=== PATIENT | female | born 1990 | race Hispanic/Latino ===

== ENCOUNTER 2017-04-07 16:22 | Outpatient (CLI) | payer MEDICAID ==
[2017-04-07 17:01] VITALS: BP 129/65
[2017-04-07] MEDS ORDERED: VISTARIL PO ONE (17:29)
== END 2017-04-07 17:55 | disposition home or self-care (01) ==
LOC: TRG 16:22 → LD 16:23 → TRG 17:55
PROVIDERS: ATTEND Obstetrics & Gynecology
DX: O47.1 False labor at or after 37 completed weeks of gestation (principal); Z3A.37 37 weeks gestation of pregnancy
CPT/HCPCS: 59025; Q0177

== ENCOUNTER 2017-04-23 08:57 | Inpatient (IN) | payer MEDICAID ==
[2017-04-23] MEDS ORDERED: LACTATED RINGERS 1,000 ML ONE (09:33)
[2017-04-23] MEDS ORDERED: BRETHINE SUB-Q PRN (10:44)
[2017-04-23] MEDS ORDERED: STADOL IV PRN (10:44)
[2017-04-23] MEDS ORDERED: POLYCILLIN/NS 2 GM/100 ML 2 GM/100 ML BAG IV ONE (10:44)
[2017-04-23] MEDS ORDERED: MINERAL OIL PO PRN (10:44)
[2017-04-23] MEDS ORDERED: SUBLIMAZE IV PRN (10:44)
[2017-04-23] MEDS ORDERED: XYLOCAINE 2% INFILTRATI ONE (10:44)
[2017-04-23] MEDS ORDERED: BRETHINE IVP PRN (10:44)
[2017-04-23] MEDS ORDERED: ePHEDrine SULFATE IV PRN ×2 (10:44→15:39)
--- NOTE | 2017-04-23 10:49 | History and Physical Report ---
History of Present Illness Date of examination: 04/23/17 Date of admission: 04/23/17 08:57 Chief complaint: IOl for suspected macrosomic @ 40wks, . History of present illness: EDC Calculations by LMP: 04/23/2017 Past History : 4 Term Births: 3 Premature Births: 0 Living Children: 3 Para: 3 Mult. Births: 0 Prev : 0 Aborta: 0 Elect. Ab: 0 Spont. Ab: 0 # 1 Delivery date: 03/16/2009 Weeks Gestation: 41+3 Delivery type: Vaginal Anesthesia type: epidural Delivery location: [facility] Infant Sex: female weight: 9.19 Name: Alecia Comments: postterm # 2 Delivery date: 07/31/2007 Weeks Gestation: 41+3 Delivery type: Delivery location: [facility] Infant Sex: Female weight: 7-10 Comments: Inductio # 3 Delivery date: 03/03/2012 Weeks Gestation: 40 Delivery type: Vaginal Anesthesia type: epidural Delivery location: [facility] Sex: female weight: 9.19 Name: Alaina Past Medical History: Reviewed history from 07/04/2011 and no changes required: Asthma as a child Past Surgical History: Reviewed history from 08/18/2014 and no changes required: Tonsillectomy Breast Augmentation: 2013 Past Medical History Abnormal PAP: negative SVETLANA Exposure: negative Infertility: negative Uterine Anomaly: negative Uterine Surgery (not C/S): negative Other Gynecologic Problems: negative Social Hx: implementation advisor Patient is Infection History Hx of STD: none HIV Risk Eval: no Personal hx. of genital herpes: no Genetic History Congenital Heart Defect: Mom: no Dad: no Yifan Disease: Mom: no Dad: no Thalassemia Mom: no Dad: no Neural Tube Defect Mom: no Dad: no Down's Syndrome Mom: no Dad: no Ha-Sachs Mom: no Dad: no Sickle Cell Disease/Trait Mom: no Dad: no Hemophilia Mom: no Dad: no Muscular Dystrophy Mom: no Dad: no Cystic Fibrosis Mom: no Dad: no [place] Chorea Mom: no Dad: no Mental Retardation Mom: no Dad: no Fragile X Mom: no Dad: no Other Genetic/Chromosomal Disorder Mom: no Dad: no Child w/other defect Mom: no Dad: no Active Medications: PLUS 27-1 MG TABS ( VIT-FE FUMARATE-FA) 1 po DICLEGIS 10-10 MG TBEC (DOXYLAMINE-PYRIDOXINE) 2 tabs po qhs Current Allergies (reviewed today): * SULFA (Critical) Past History Past Medical History: no pertinent history - Obstetrical History Expected Date of Delivery: 04/23/17 Actual Gestation: 40 Week(s) 0 Day(s) : 4 Para: 3 Hx # Term Pregnancies: 3 Number of Pregnancies: 0 Spontaneous Abortions: 0 Induced : 0 Number of Living Children: 3 Medications and Allergies Allergies Allergy/AdvReac Type Severity Reaction Status Date / Time No Known Allergies Allergy Unverified 04/07/17 17:04 Home Medications Medication Instructions Recorded Confirmed Last Taken Type Vit W-Ca,Fe,FA(<1 mg) 1 tab PO DAILY 04/07/17 04/07/17 04/06/17 09:00 History [ Vitamins] 1 Active Meds: Active Medications Butorphanol Tartrate (Stadol) 2 mg IV Q2H PRN PRN Reason: Pain , Severe (7-10) Ephedrine Sulfate (Ephedrine Sulfate) 10 mg IV Q2M PRN PRN Reason: Hypotension Stop: 04/23/17 10:49 Fentanyl (Sublimaze) 100 mcg IV Q2H PRN PRN Reason: Labor Pain Ampicillin Sodium (Polycillin/Ns 2 Gm/100 Ml) 2 gm in 100 mls @ 100 mls/hr IV ONCE ONE PRN Reason: Protocol Stop: 04/23/17 11:43 Ampicillin Sodium (Polycillin/Ns 1 Gm/50 Ml) 1 gm in 50 mls @ 100 mls/hr IV Q4HR CHANDLER PRN Reason: Protocol Lactated Ringer's (Lactated Ringers) 1,000 mls @ 125 mls/hr IV DIRECT CHANDLER Oxytocin/Sodium Chloride (Pitocin/Ns 20 Unit/1000ml Drip) 20 units in 1,000 mls @ 125 mls/hr IV DIRECT CHANDLER Oxytocin/Sodium Chloride (Pitocin/Ns 30 Unit/500ml) 30 units in 500 mls @ 4 mls /hr IV TITR CHANDLER PRN Reason: Protocol Lidocaine (Xylocaine 2%) 20 ml INFILTRATI ONCE ONE Stop: 04/23/17 10:45 Mineral Oil (Mineral Oil) 30 ml PO QHS PRN PRN Reason: Constipation Terbutaline Sulfate (Brethine) 0.25 mg SUB-Q ONCE PRN PRN Reason: Hyperstimulation/Hypertonicity Stop: 04/23/17 10:45 Terbutaline Sulfate (Brethine) 0.25 mg IVP ONCE PRN PRN Reason: Hyperstimulation/Hypertonicity Stop: 04/23/17 10:45 Review of Systems All systems: negative - Vital Signs Vital signs: Vital Signs Pulse BP 83 131/79 04/23/17 09:21 04/23/17 09:21 Temp Pulse Resp BP Pulse Ox 98.1 F 86 13 131/79 100 04/23/17 09:50 04/23/17 10:00 04/23/17 09:50 04/23/17 09:21 04/23/17 10:00 - Physical Exam Breasts: Positive: normal Cardiovascular: Regular rate Lungs: Positive: Clear to auscultation, Normal air movement Abdomen: Positive: normal appearance, soft, normal bowel sounds Genitourinary (Female): Positive: normal external genitalia, normal perenium Vagina: Positive: normal moisture Uterus: Positive: normal size, normal contour Anus/Rectum: Positive: normal perianal skin Extremities: Positive: normal Deep Tendon Reflex Grade: Normal +2 - Obstetrical FHR: auscultation normal, category 1 Uterine Contraction Monitor Mode: External Cervical Dilatation: 1.5 Cervical Effacement Percentage: 30 station: -3 Uterine Contraction Pattern: Irregular Uterine Tone Measurement Phase: Contraction Uterine Contraction Intensity: Mild Results Result Diagrams: 04/23/17 10:45 All other labs normal. Assessment and Plan Patient admitted for IOL @ 40wks, GBS +, suspected macrosomia. orders in emr, anticipate . - Patient Problems (1) Positive GBS test Current Visit: Yes Status: Acute (2) Macrosomia Current Visit: Yes Status: Acute (3) Elective induction of labor planned Current Visit: Yes Status: Acute (4) 40 weeks gestation of Current Visit: Yes Status: Acute
[2017-04-23] MEDS ORDERED: PITOCin/NS 20 UNIT/1000ML DRIP 20 UNITS/1,000 ML BAG IV SCH ×2 (11:00→21:04)
[2017-04-23] MEDS ORDERED: PITOCin/NS 30 UNIT/500ML 30 UNITS/500 ML BAG IV SCH (11:00)
[2017-04-23] MEDS ORDERED: LACTATED RINGERS 1,000 ML IV SCH (11:00)
[2017-04-23 11:44] LABS: Hematocrit 35.4 % (30.3-42.9); Hemoglobin 12.1 gm/dl (10.1-14.3); Mean Corpuscular HGB Conc 34 % (30-34); Mean Corpuscular Hemoglobin 32 pg (28-32); Mean Corpuscular Volume 94 fl (79-97); Platelet Count 267 K/mm3 (140-440); Red Blood Count 3.76 M/mm3 (3.65-5.03); White Blood Count 10.1 K/mm3 (4.5-11.0)
[2017-04-23] MEDS ORDERED: POLYCILLIN/NS 1 GM/50 ML 1 GM/50 ML BAG IV SCH (14:45)
--- NOTE | 2017-04-23 15:38 | Anesthesia Consultation ---
Anesthesia Consult and Med Hx Date of service: 04/23/17 - Airway Anesthetic Teeth Evaluation: Good ROM Head & Neck: Adequate Mental/Hyoid Distance: Adequate Mallampati Class: Class II Intubation Access Assessment: Probably Good - Pulmonary Exam CTA: Yes - Cardiac Exam Cardiac Exam: RRR - Pre-Operative Health Status ASA Pre-Surgery Classification: ASA2 Proposed Anesthetic Plan: Epidural, Spinal - Pulmonary Hx Asthma: No COPD: No Hx Pneumonia: No - Cardiovascular System Hx Hypertension: No - Central Nervous System Hx Seizures: No Hx Psychiatric Problems: No - Endocrine Hx Renal Disease: No Hx End Stage Renal Disease: No Hx Hypothyroidism: No Hx Hyperthyroidism: No - Hematic Hx Anemia: No Hx Sickle Cell Disease: No - Other Systems Hx Alcohol Use: No - Additional Comments Anesthesia Medical History Comments: IUP in Labor @ 40 weeks. Plt 267. H/H 12.1/35.4
[2017-04-23] MEDS ORDERED: NARCAN 2 MG/2 ML IV PRN (15:39)
[2017-04-23] MEDS ORDERED: XYLOCAINE MPF 2% ONE (15:49)
[2017-04-23] MEDS ORDERED: fentaNYL-BUPIV 2 MCG/ML-0.125% 200 MCG/100 ML BAG EPIDURAL SCH (16:00)
--- NOTE | 2017-04-23 17:37 | Procedure Note ---
OB Delivery Note - Delivery Date of Delivery: 04/23/17 ( Male) Stock Digger: IVANIA NEAL Estimated blood loss: 300cc - Vaginal Delivery presentation: vertex Delivery position: OA Intrapartum events: none Delivery induction: oxytocin Delivery augmentation: rupture of membranes Delivery monitor: external FHT, external uterine Route of delivery: Delivery placenta: spontaneous Delivery cord: 3 umbilical vessels Episiotomy: none Delivery laceration: none Anesthesia: epidural Delivery comments: Male del MAHIN over intact perineum. Placed skin to skin on mother's abd, 3 vessel cord clamped and cut. Cord blood collected. Placenta del intact and complete. Pit IM (IV pulled out during pushing). EBL 300, Apgars 8/9, 's weight 9#4oz. no lacerations. mother and infant remain LDR stable. - Infant A at 1 minute: 8 at 5 minutes: 9 Gender: Male (9#4)
[2017-04-23] MEDS ORDERED: NORCO 5/325 PO PRN (21:04)
[2017-04-23] MEDS ORDERED: TUCKS PAD TP PRN (21:04)
[2017-04-23] MEDS ORDERED: DERMOPLAST TP PRN (21:04)
[2017-04-23] MEDS ORDERED: ZOFRAN IV PRN (21:04)
[2017-04-23] MEDS ORDERED: SODIUM CHLORIDE FLUSH SYRINGE 10 ML IV SCH (21:04)
[2017-04-23] MEDS ORDERED: DULCOLAX PR PRN (21:04)
[2017-04-23] MEDS ORDERED: LANSINOH TP PRN (21:04)
[2017-04-23] MEDS ORDERED: MILK OF MAGNESIA PO PRN (21:04)
[2017-04-23] MEDS ORDERED: PHENERGAN PO PRN (21:04)
[2017-04-23] MEDS ORDERED: BENADRYL PO PRN (21:04)
[2017-04-23] MEDS ORDERED: TYLENOL PO PRN (21:04)
[2017-04-23] MEDS: MOTRIN PO SCH (21:19)
[2017-04-24 04:59] LABS: Hematocrit 32.6 % (30.3-42.9); Hemoglobin 10.9 gm/dl (10.1-14.3)
[2017-04-24] MEDS: MOTRIN PO SCH ×3 (05:43→14:49)
[2017-04-24] MEDS ORDERED: BOOSTRIX IM ONE (06:00)
--- NOTE | 2017-04-24 08:04 | Progress Note ---
Assessment and Plan Patient doing well w/o complaints. Lochia scant, H&H stable 10.9/32.6, VSSAF. Patient desires d/c home this afternoon. plan for routine f/u 4 weeks for visit. - Patient Problems (1) Positive GBS test Current Visit: Yes Status: Acute (2) Macrosomia Current Visit: No Status: Resolved (3) Elective induction of labor planned Current Visit: No Status: Resolved (4) 40 weeks gestation of Current Visit: No Status: Resolved (5) (normal spontaneous vaginal delivery) Current Visit: Yes Status: Acute Subjective - Subjective Date of service: 04/24/17 Principal diagnosis: day #1 s/p Interval history: EDC Calculations by LMP: 04/23/2017 Past History : 4 Term Births: 3 Premature Births: 0 Living Children: 3 Para: 3 Mult. Births: 0 Prev : 0 Aborta: 0 Elect. Ab: 0 Spont. Ab: 0 # 1 Delivery date: 03/16/2009 Weeks Gestation: 41+3 Delivery type: Vaginal Anesthesia type: epidural Delivery location: [facility] Infant Sex: female weight: 9.19 Name: Alecia Comments: postterm # 2 Delivery date: 07/31/2007 Weeks Gestation: 41+3 Delivery type: Delivery location: [facility] Infant Sex: Female weight: 7-10 Comments: Inductio # 3 Delivery date: 03/03/2012 Weeks Gestation: 40 Delivery type: Vaginal Anesthesia type: epidural Delivery location: [facility] Sex: female weight: 9.19 Name: Alaina Past Medical History: Reviewed history from 07/04/2011 and no changes required: Asthma as a child Past Surgical History: Reviewed history from 08/18/2014 and no changes required: Tonsillectomy Breast Augmentation: 2013 Past Medical History Abnormal PAP: negative SVETLANA Exposure: negative Infertility: negative Uterine Anomaly: negative Uterine Surgery (not C/S): negative Other Gynecologic Problems: negative Social Hx: student advisor Patient is Infection History Hx of STD: none HIV Risk Eval: no Personal hx. of genital herpes: no Genetic History Congenital Heart Defect: Mom: no Dad: no Yifan Disease: Mom: no Dad: no Thalassemia Mom: no Dad: no Neural Tube Defect Mom: no Dad: no Down's Syndrome Mom: no Dad: no Ha-Sachs Mom: no Dad: no Sickle Cell Disease/Trait Mom: no Dad: no Hemophilia Mom: no Dad: no Muscular Dystrophy Mom: no Dad: no Cystic Fibrosis Mom: no Dad: no [place] Chorea Mom: no Dad: no Mental Retardation Mom: no Dad: no Fragile X Mom: no Dad: no Other Genetic/Chromosomal Disorder Mom: no Dad: no Child w/other defect Mom: no Dad: no Active Medications: PLUS 27-1 MG TABS ( VIT-FE FUMARATE-FA) 1 po DICLEGIS 10-10 MG TBEC (DOXYLAMINE-PYRIDOXINE) 2 tabs po qhs Current Allergies (reviewed today): * SULFA (Critical) Patient reports: appetite normal, voiding normally, pain well controlled, ambulating normally, no dizzy ambulation, no nauseated : doing well, bottle feeding (breast and bottle feeding) Objective - Vital Signs Latest vital signs: Vital Signs Temp Pulse Pulse Resp BP BP Pulse Ox 04/24/17 05:00 97.9 F 77 18 118/72 04/24/17 01:00 97.9 F 70 18 99/59 04/23/17 20:55 98.1 F 82 18 133/66 04/23/17 17:19 102 H 146/64 04/23/17 17:05 104 H 98 04/23/17 16:59 92 H 98 04/23/17 16:58 96 H 136/70 04/23/17 16:54 88 98 04/23/17 16:49 94 H 95 04/23/17 16:44 98 H 97 04/23/17 16:39 91 H 98 04/23/17 16:34 95 H 109/56 98 04/23/17 16:29 83 98 04/23/17 16:24 94 H 97 04/23/17 16:19 84 111/62 98 04/23/17 16:14 99 H 98 04/23/17 16:09 86 98 04/23/17 16:04 109 H 96 04/23/17 15:59 84 97 04/23/17 15:54 80 98 04/23/17 15:50 95 H 133/77 04/23/17 15:49 79 97 04/23/17 15:44 92 H 98 04/23/17 15:43 82 128/63 04/23/17 15:39 89 99 04/23/17 15:34 91 H 99 04/23/17 15:30 82 137/76 04/23/17 15:29 92 H 133/76 04/23/17 15:27 90 135/78 04/23/17 15:24 94 H 131/68 100 04/23/17 15:22 105 H 148/74 04/23/17 15:20 101 H 135/83 04/23/17 15:19 105 H 100 04/23/17 15:18 103 H 138/83 04/23/17 15:14 116 H 99 04/23/17 13:52 76 98 04/23/17 13:47 73 97 04/23/17 13:42 89 96 04/23/17 13:37 80 96 04/23/17 13:32 90 96 04/23/17 13:27 76 97 04/23/17 13:22 72 96 04/23/17 13:17 79 96 04/23/17 13:12 81 97 04/23/17 13:04 86 95 04/23/17 10:00 86 100 04/23/17 09:50 98.1 F 99 H 13 97 04/23/17 09:21 83 131/79 Intake and Output 04/23/17 04/24/17 04/24/17 22:59 06:59 14:59 Intake Total 375 545 Output Total 300 600 Balance 75 -55 Intake: IV 375 65 PITOCin/NS 20 UNIT/1000ML 375 65 DRIP 20 units In 1,000 ml @ 125 mls/hr IV DIRECT CHANDLER Rx#:[id number] Oral 360 Intake, Free Water 120 Output: Urine 300 600 Void 300 600 Other: Total, Intake Amount 360 Total, Output Amount 300 300 Estimated Blood Loss 150 - Exam Breasts: Present: normal Cardiovascular: Present: Regular rate Lungs: Present: Clear to auscultation, Normal air movement Abdomen: Present: normal appearance, soft Vulva: both: normal Uterus: Present: normal, firm, fundal height at umbilicus Extremities: Present: normal Deep Tendon Reflex Grade: Normal +2 - Labs Labs: Abnormal lab results 04/23/17 Range/Units 10:45 RDW 13.0 L (13.2-15.2) %
--- NOTE | 2017-04-24 08:07 | Discharge Summary ---
Providers - Providers Date of Admission: 04/23/17 08:57 Date of discharge: 04/24/17 (desires d/c home today) Attending physician: ZACK ALLEN Primary care physician: TRENT ZAPIEN Hospitalization Reason for admission: induction of labor Delivery: Episiotomy: none Laceration: none Other procedures: none complications: none Discharge diagnosis: IUP at term delivered baby: male Hospital course: uncomplicated vaginal Condition at discharge: Good Disposition: DISCHARGED TO HOME OR SELFCARE - Discharge Diagnoses (1) Positive GBS test Status: Acute (2) (normal spontaneous vaginal delivery) Status: Acute Plan - Discharge Medications Prescriptions: Ibuprofen [Motrin 800 MG tab] 800 mg PO Q8HR PRN #30 tablet PRN Reason: Pain Lidocain2.5%/Prilocai2.5% [Emla] 5 gm TP ONCE PRN #1 tube PRN Reason: Pain - Provider Discharge Summary Activity: routine, no sex for 6 weeks, no heavy lifting 4 weeks, no strenuous exercise Diet: routine Instructions: routine Additional instructions: [] Smoking cessation referral if applicable(refer to patient education folder for contact #) [] Refer to [facility]'s [facility] Booklet Call your doctor immediately for: * Fever > 100.5 * Heavy vaginal bleeding ( >1 pad per hour) * Severe persistent headache * Shortness of breath * Reddened, hot, painful area to leg or breast * Drainage or odor from incision. * Keep incision clean and dry at all times and follow doctor's instructions regarding bathing/showering - Follow up plan Follow up: TRENT ZAPIEN MD [Primary Care Provider] - 7 Days (Congratulations! Please call [phone] to schedule your son's circumcision in 1 week and your visit in 4 weeks. Bring EMLA cream to your son's appointment and await further instruction. Call for any quesitons or concerns.)
[2017-04-24] MEDS ORDERED: PRENATAL VITAMIN PO SCH (10:00)
--- NOTE | 2017-04-24 16:46 | Progress Note ---
Subjective Date of service: 04/24/17 Principal diagnosis: day #1 s/p Interval history: 1st day after normal vaginal delivery Patient is in the bed, comfortable. Pain is well controlled with pain meds. Ambulated well. No residual neurological deficit. No anesthesia complications Objective - Constitutional Vitals: Vital Signs - 12hr 04/24/17 04/24/17 04/24/17 05:00 07:45 14:49 Temperature 97.9 F 97.5 F L Pulse Rate [ 77 76 Right From Monitor] Respiratory 18 18 18 Rate Blood Pressure 118/72 [Left Arm] Blood Pressure 116/66 [Right Arm] - Labs CBC & Chem 7: 04/24/17 04:27
[2017-04-24 19:00] VITALS: BP 114/73
== END 2017-04-24 18:25 | disposition home or self-care (01) | DRG 775 ==
LOC: LD 08:57 → OB 20:24
PROVIDERS: ADMIT Obstetrics & Gynecology; ATTEND Obstetrics & Gynecology
PROC: 10E0XZZ Delivery of Products of Conception, External Approach (ICD-10-PCS; principal; 2017-04-23)
PROC: 3E033VJ Introduction of Other Hormone into Peripheral Vein, Percutaneous Approach (ICD-10-PCS; 2017-04-23)
PROC: 00HU33Z Insertion of Infusion Device into Spinal Canal, Percutaneous Approach (ICD-10-PCS; 2017-04-23)
PROC: 3E0R3CZ (ICD-10-PCS; 2017-04-23)
DX: O99.824 Streptococcus B carrier state complicating childbirth (principal); O36.63X0 Maternal care for excessive fetal growth, third trimester, not applicable or unspecified; Z3A.40 40 weeks gestation of pregnancy; Z37.0 Single live birth; Z88.2 Allergy status to sulfonamides
CPT/HCPCS: 36415; 85014; 85018; 85027; 86592; 86850; 86900; 86901; 99211; G0463; J0290; J2590; J7120